=== PATIENT | male | born 1995 | race Caucasian/White ===

== ENCOUNTER 2021-11-12 04:21 | Emergency (ER) | payer SELFPAY ==
[~2021-11-12] VITALS: Ht 157.5 cm; Wt 54.4 kg
--- NOTE | 2021-11-12 04:24 | NUR ---
PT RICHELLE BLS. TAKEN TO BED 5
[2021-11-12 04:36] VITALS: BP 129/79
--- NOTE | 2021-11-12 04:36 | NUR ---
26 Y/O MALE BIBA FOR CP X3 HOURS. PT IS AMBULATORY W/ UNLABORED BREATHING; A/OX4 RELUCTANT TO ANSWER; PT HAS NO COUGH, SOB, OR FEVER. PT STATES HE HAS HAD CP ISSUES FOR THE LAST COUPLE OF DAYS AND IT DEPENTS "WHERE HE STANDS." PT IS SEATED ON THE GURNEY WITH THE HOB RAISED, RAIL UP X1, AND BED IN LOWEST SETTING. NO PMH NKA DENIES MEDS
--- NOTE | 2021-11-12 04:38 | NUR ---
Dr. Nicole examining patient.
[2021-11-12] MEDS ORDERED: KETOROLAC 60 MG/2 ML VIAL IM ONE (04:40)
[2021-11-12] MEDS ORDERED: IBUP-2213 PO (04:52)
[2021-11-12 04:58] VITALS: BP 129/79
--- NOTE | 2021-11-12 04:58 | NUR ---
Patient discharged with v/s stable. Written and verbal after care instructions given and explained. Patient alert, oriented and verbalized understanding of instructions. Ambulatory with steady gait. All questions addressed prior to discharge. ID band removed. Patient advised to follow up with PMD. Rx of IBUPROFEN given. Patient educated on indication of medication including possible reaction and side effects. Opportunity to ask questions provided and answered. PT HAS CALM DEMEANOR, VSS, UNLABORED BREATHING, AND STEADY GAIT.
== END 2021-11-12 04:58 | disposition home or self-care (01) ==
LOC: MED 04:21
DX: R07.9 Chest pain, unspecified (principal); F17.210 Nicotine dependence, cigarettes, uncomplicated
CPT/HCPCS: 93005; 99283; J1885